=== PATIENT | female | born 1980 | race Caucasian/White ===

== ENCOUNTER 2020-03-27 07:45 | Emergency (ER) | payer OTHER ==
[~2020-03-27] VITALS: Ht 165.1 cm; Wt 76.5 kg
[2020-03-27] MEDS ORDERED: WELLTAB38 PO (08:01)
[2020-03-27 09:03] LABS: RSV AMPLIFICATION NEGATIVE (NEGATIVE)
[2020-03-27] MEDS ORDERED: ACETAMINOPHEN 500 MG TAB PO ONE (10:15)
[2020-03-27] MEDS ORDERED: AZEL1SPR3 NARES (14:15)
[2020-03-27] MEDS ORDERED: CETI10TA4 PO (14:15)
[2020-03-27 15:01] VITALS: BP 125/62
== END 2020-03-27 15:02 | disposition home or self-care (01) ==
LOC: M ED 07:45
DX: R09.81 Nasal congestion (principal)

== ENCOUNTER → 2020-12-01 | Outpatient (CLI) | payer OTHER ==
[~2020-12-01] MED LIST: AZEL1SPR3 NARES; CETI10TA4 PO; WELLTAB38 PO
[2020-12-01 16:07] LABS: BASO % 0.4 % (0.0-1.0); EOS # 0.1 10^3/uL (0.0-0.5); EOS % 1.4 % (0.0-3.0); HEMATOCRIT 36.6 % (36.0-47.0); HEMOGLOBIN 11.8 g/dl (12.0-15.5); LYMPH # 2.1 10^3/uL (1.5-5.0); LYMPH % 29.6 % (24.0-44.0); MEAN CORPUSCULAR HEMOGLOBIN 32.2 pg (27.0-33.0); MEAN CORPUSCULAR HGB CONC 32.2 g/dl (32.0-36.5); MONO # 0.7 10^3/uL (0.0-0.8); MONO % 9.3 % (2.0-8.0); NEUTROPHILS # 4.2 10^3/uL (1.5-8.5); PLATELET COUNT, AUTOMATED 241 10^3/uL (150-450); RED BLOOD COUNT 3.66 10^6/uL (4.00-5.40); WHITE BLOOD COUNT 7.1 10^3/uL (4.0-10.0)
[2020-12-01 16:48] LABS: ALBUMIN 3.5 GM/DL (3.2-5.2); ALT/SGPT 25 U/L (12-78); BILIRUBIN,TOTAL 0.5 MG/DL (0.2-1.0); BLOOD UREA NITROGEN 11 MG/DL (7-18); CALCIUM LEVEL 8.7 MG/DL (8.5-10.1); CARBON DIOXIDE LEVEL 27 MEQ/L (21-32); CHLORIDE LEVEL 106 MEQ/L (98-107); CHOLESTEROL LEVEL 164 MG/DL (<200); CHOLESTEROL RISK RATIO 2.376 (<5); CREATININE FOR GFR 0.74 MG/DL (0.55-1.30); GLOMERULAR FILTRATION RATE > 60.0 (>58); GLUCOSE, FASTING 95 MG/DL (70-100); HDL CHOLESTEROL 69 MG/DL (>40); IRON (FE) 87 UG/DL (50-170); LDL CHOLESTEROL 84 MG/DL (<100); MAGNESIUM LEVEL 2.2 MG/DL (1.8-2.4); NON-HDL-C 95 MG/DL; PERCENT SATURATION 23.4 % (13.2-45.0); POTASSIUM SERUM 3.8 MEQ/L (3.5-5.1); SODIUM LEVEL 139 MEQ/L (136-145); TOTAL IRON BINDING CAPACITY 372 UG/DL (250-450); TOTAL PROTEIN 6.6 GM/DL (6.4-8.2); TRIGLYCERIDES LEVEL 56 MG/DL (<150)
[2020-12-01 16:49] LABS: FERRITIN 15 NG/ML (8-252); FOLATE > 24.0 NG/ML; FREE T4 0.91 NG/DL (0.76-1.46); THYROID STIMULATING HORMONE 0.674 uIU/ML (0.358-3.740); TOTAL 25(OH) VITAMIN D 19.4 NG/ML (30.0-100.0); VITAMIN B12 LEVEL 314 PG/ML
== END ==
LOC: M WUC 11:13
PROVIDERS: ATTEND Physician Assistant
DX: Z98.84 Bariatric surgery status (principal)